=== PATIENT | male | born 1985 | race African-American/Black ===

== ENCOUNTER 2019-08-20 05:55 | Emergency (ER) | payer OTHER ==
[2019-08-20] MEDS ORDERED: KETOROLAC 30 MG/ML VIAL IVP STA (06:19)
--- NOTE | 2019-08-20 06:19 | ED Physician Documentation ---
<Kacie Lo - Last Filed: 08/20/19 06:53> History of Present Illness - Stated complaint Stated Complaint: L LOWER LAT SIDE RIB AREA PX - Chief complaint Chief Complaint: Abd Pain - History obtained from History obtained from: Patient - Additonal information Additional information: This is a 33-year-old who presents with complaints that he is been having difficulty breathing since about 8:00 last night while he was just laying in bed. Denies history of asthma and he has not recently been ill with a cough. Does have a history of a pneumothorax on the right side back in October 2016 they thought that it might of been related to a pneumonia process. He had to have a chest tube. He is also had a history of pleurisy on that side. He describes the pain now as a tightness at about a 7-8 out of 10 on the right side. He did not take anything for it at home. He did not pass out but he felt this tingling pass over the roof of his mouth. Denies any recent illness of sore throat or fever. No palpitations. He was having to breathe really rapidly at one point through the night. No nausea or vomiting and no peripheral edema. 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 His is in the [place] and they just moved here 2 weeks ago. Review of Systems Constitutional: denies: Fever Nose: denies: Congestion Throat: denies: Sore throat Cardiac: reports: Chest pain / pressure. denies: Palpitations, Pedal edema Respiratory: reports: Dyspnea. denies: Cough GI: denies: Nausea, Vomiting : denies: Dysuria Skin: denies: Rash Neurologic: denies: Near syncope, Syncope PD PAST MEDICAL HISTORY - Present Medications Home Medications: Ambulatory Orders Medication Instructions Recorded Confirmed Hydrocodone/Acetaminophen 1 - 2 each PO Q6H PRN #14 tablet 08/20/19 [Hydrocodon-Acetaminophen 5-325] - Allergies Allergies/Adverse Reactions: Allergies Allergy/AdvReac Type Severity Reaction Status Date / Time No Known Drug Allergies Allergy Verified 08/20/19 06:03 PD ED PE NORMAL - Vitals Vital signs reviewed: Yes - General General: Alert and oriented X 3, No acute distress, Well developed/nourished - HEENT HEENT: Atraumatic, PERRL, EOMI, Moist mucous membranes - Neck Neck: Supple, no meningeal sign, No adenopathy, Thyroid normal - Cardiac Cardiac: RRR, No murmur, Strong equal pulses - Respiratory Respiratory: No respiratory distress, Clear bilaterally - Abdomen Abdomen: Normal bowel sounds, Soft, Non tender - Derm Derm: Normal color, Warm and dry, No rash - Extremities Extremities: No edema - Neuro Neuro: Alert and oriented X 3, major gifts officer 2-12 intact, No motor deficit, No sensory deficit, Normal speech - Psych Psych: Normal mood, Normal affect Results - EKG (time done) 0629 Rate: Rate (enter#) (57) Rhythm: Sinus bradycardia Intervals: No: Wide QRS Ischemia: ST elevation c/w repol Computer interpretation: Agree with computer - Rads (name of study) CXR Radiology: EMP read contemporaneously (Neg PTX) PD MEDICAL DECISION MAKING - ED course Complexity details: reviewed results, d/w patient, d/w family ED course: Patient had an IV started and was given Toradol 30 mg IV. Chest x-ray showed no pneumothorax. Labs are still pending. Care will be turned over to Dr. Pollard at 0700. Departure - Departure Disposition: 01 Home, Self Care Clinical Impression: Pleurisy Condition: Stable Instructions: ED Chest Pain Pleurisy Follow-Up: [facility] [Provider Group] Prescriptions: Hydrocodone/Acetaminophen [Hydrocodon-Acetaminophen 5-325] 1 - 2 each PO Q6H PRN #14 tablet PRN Reason: pain Forms: Activity restrictions <Torres Pollard - Last Filed: 08/20/19 08:11> Results - Vitals Vitals: Vital Signs - 24 hr 08/20/19 08/20/19 08/20/19 06:00 06:29 07:46 Temperature 36.6 C Heart Rate 53 L 71 53 L Respiratory 18 16 12 Rate Blood Pressure 127/69 125/73 O2 Saturation 100 100 99 Oxygen O2 Source Room air - Labs Labs: Laboratory Tests 08/20/19 08/20/19 08/20/19 06:25 06:25 06:25 WBC 6.1 RBC 4.79 Hgb 14.7 Hct 44.7 MCV 93.3 MCH 30.7 MCHC 32.9 RDW 11.8 L Plt Count 291 MPV 9.5 Neut # (Auto) 3.5 Lymph # (Auto) 1.8 [place] # (Auto) 0.5 Eos # (Auto) 0.2 Baso # (Auto) 0.1 Absolute Nucleated RBC 0.00 Nucleated RBC % 0.0 Sodium 139 Potassium 3.9 Chloride 102 Carbon Dioxide 29 Anion Gap 8.0 BUN 17 Creatinine 1.3 H Estimated GFR (MDRD) 78 L Glucose 94 Calcium 9.3 Total Bilirubin 0.9 AST 23 ALT 18 Alkaline Phosphatase 40 L Troponin I High Sens < 2.3 L Total Protein 6.9 Albumin 4.3 Globulin 2.6 Albumin/Globulin Ratio 1.7 Lipase 38 Urine Color Urine Clarity Urine pH Ur Specific [place] Urine Protein Urine Glucose (UA) Urine Ketones Urine Occult Blood Urine Nitrite Urine Bilirubin Urine Urobilinogen Ur Leukocyte Esterase Ur Microscopic Review Urine Culture Comments 08/20/19 06:57 WBC RBC Hgb Hct MCV MCH MCHC RDW Plt Count MPV Neut # (Auto) Lymph # (Auto) [place] # (Auto) Eos # (Auto) Baso # (Auto) Absolute Nucleated RBC Nucleated RBC % Sodium Potassium Chloride Carbon Dioxide Anion Gap BUN Creatinine Estimated GFR (MDRD) Glucose Calcium Total Bilirubin AST ALT Alkaline Phosphatase Troponin I High Sens Total Protein Albumin Globulin Albumin/Globulin Ratio Lipase Urine Color YELLOW Urine Clarity CLEAR Urine pH 5.5 Ur Specific [place] 1.020 Urine Protein NEGATIVE Urine Glucose (UA) NEGATIVE Urine Ketones NEGATIVE Urine Occult Blood NEGATIVE Urine Nitrite NEGATIVE Urine Bilirubin NEGATIVE Urine Urobilinogen 0.2 (NORMAL) Ur Leukocyte Esterase NEGATIVE Ur Microscopic Review NOT INDICATED Urine Culture Comments NOT INDICATED
[2019-08-20 06:36] LABS: BASOPHILS # (AUTO) 0.1 10^3/uL (0.0-0.1); BASOPHILS % (AUTO) 0.8 %; EOSINOPHILS # (AUTO) 0.2 10^3/uL (0.0-0.7); EOSINOPHILS % (AUTO) 2.5 %; HGB - HEMOGLOBIN 14.7 g/dL (14.0-18.0); LYMPHOCYTES # (AUTO) 1.8 10^3/uL (1.5-3.5); LYMPHOCYTES % (AUTO) 29.3 %; MEAN CORPUSCULAR HEMOGLOBIN 30.7 pg (27.0-31.0); MEAN CORPUSCULAR HGB CONC 32.9 g/dL (32.0-36.0); MEAN CORPUSCULAR VOLUME 93.3 fL (80.0-94.0); MEAN PLATELET VOLUME 9.5 fL (7.4-11.4); MONOCYTES # (AUTO) 0.5 10^3/uL (0.0-1.0); MONOCYTES % (AUTO) 8.6 %; NEUTROPHILS # (AUTO) 3.5 10^3/uL (1.5-6.6); NEUTROPHILS % (AUTO) 58.5 %; PLT - PLATELET COUNT 291 10^3/uL (130-450); RED BLOOD COUNT 4.79 10^6/uL (4.70-6.10); RED CELL DISTRIBUTION WIDTH 11.8 % (12.0-15.0); WHITE BLOOD COUNT 6.1 x10^3/uL (4.8-10.8)
[2019-08-20 06:44] LABS: ALBUMIN 4.3 g/dL (3.2-5.5); ALBUMIN/GLOBULIN RATIO 1.7 (1.0-2.2); BILIRUBIN,TOTAL 0.9 mg/dL (0.2-1.0); CALCIUM 9.3 mg/dL (8.5-10.3); CREATININE 1.3 mg/dL (0.6-1.2); TOTAL PROTEIN 6.9 g/dL (6.7-8.2)
[2019-08-20 07:02] LABS: BILIRUBIN,URINE NEGATIVE (NEGATIVE); GLUCOSE, URINE (UA) NEGATIVE (NEGATIVE); KETONES,URINE (UA) NEGATIVE (NEGATIVE); LEUKOCYTE ESTERASE, URINE NEGATIVE (NEGATIVE); NITRITE,URINE NEGATIVE (NEGATIVE); OCCULT BLOOD,URINE NEGATIVE (NEGATIVE); PH,URINE 5.5 PH (5.0-7.5); PROTEIN,URINE NEGATIVE (NEGATIVE); UROBILINOGEN,URINE 0.2 (NORMAL) E.U./dL (NORMAL)
[2019-08-20 07:09] LABS: CLARITY,URINE CLEAR (CLEAR)
--- NOTE | 2019-08-20 07:48 | XRAY Report ---
Reason: cough Procedure Date: 08/20/2019 Accession Number: [id number] / [id number] Procedure: XR - Chest 2 View X-Ray CPT Code: 14965 Final Report FULL RESULT: EXAM: CHEST RADIOGRAPHY EXAM DATE: 08/20/2019 06:56 AM. CLINICAL HISTORY: Cough. Right chest pain. COMPARISON: None. TECHNIQUE: 2 views. FINDINGS: Lungs/Pleura: No focal opacities evident. No pleural effusion. No pneumothorax. Normal volumes. Faintly visualized EKG stickers or snaps project over the left lower chest. Mediastinum: Heart and mediastinal contours are unremarkable. Other: No acute osseous abnormality. IMPRESSION: Normal 2-view chest radiography. No focal pulmonary consolidation. [facility]
[2019-08-20] MEDS ORDERED: HYDROcod/ACETAM 5/325 MG TABLET PO STA (07:59)
[2019-08-20] MEDS ORDERED: DEXAMETHASONE 10 MG/ML VIAL IVP STA (07:59)
[2019-08-20 08:55] VITALS: BP 136/79
== END 2019-08-20 08:54 | disposition home or self-care (01) ==
LOC: ED 05:55
DX: R09.1 Pleurisy (principal); R00.1 Bradycardia, unspecified
CPT/HCPCS: 36415; 71046; 80053; 81003; 83690; 84484; 85025; 93005; 99284; A9270; 81001; 87086